=== PATIENT | male | born 1945 | race Caucasian/White ===

== ENCOUNTER 2020-10-26 15:38 | Inpatient (IN) ==
[2020-10-27] MEDS ORDERED: *HR* Dextrose 50 % in Water (Vial) 50 ML VIAL IVP PRN (16:48)
[2020-10-27] MEDS ORDERED: Dextrose Gel 15 GM/37.5 ML TUBE PO PRN ×2 (16:48)
[2020-10-27] MEDS ORDERED: D5% in Water 1,000 ML IVC PRN (16:48)
[2020-10-27] MEDS: Insulin LISPRO 300 UNITS/3 ML VIAL SUBQ SCH (19:48)
[2020-10-27] MEDS: levETIRAcetam 250 MG TABLET PO SCH (20:05)
[2020-10-27] MEDS: QUEtiapine Fumarate 25 MG TABLET PO PRN (20:05)
[2020-10-27] MEDS ORDERED: QUEtiapine Fumarate 25 MG TABLET PO SCH (21:00)
[2020-10-27] MEDS ORDERED: Insulin DETEMIR 100 UNIT/ML per UNIT SUBQ ONE (21:00)
[2020-10-28 00:52] LABS: Bilirubin,Urine Negative (Negative); Blood,Urine Trace-intact (Negative); Clarity,Urine Slightly Cloudy (Clear); Glucose,Urine (UA) Normal (Normal); Ketones,Urine Trace mg/dL (Negative); Leukocyte Esterase,Urine Negative (Negative); Nitrite,Urine Negative (Negative); Protein,Urine Negative (Neg-Trace); Specific Gravity,Urine 1.015 (1.010-1.025); Urobilinogen,Urine Normal (Normal)
[2020-10-28 00:55] LABS: Amorphous Sediment,Urine Few per hpf (None-Few); Color,Urine Yellow (Yellow); RBC,Urine 0-3 per hpf (0-3)
[2020-10-28 04:24] LABS: Hematocrit 42.6 % (37.5-50.1); Mean Corpuscular HGB Conc 35.2 g/dL (31.6-35.5); Mean Corpuscular Hemoglobin 30.9 pg (28.0-33.3); Mean Corpuscular Volume 87.7 fL (83.0-100.0); Mean Platelet Volume 9.9 fL (9.4-12.4); Platelet Count 215 K/mcL (140-400); Red Blood Count 4.86 M/mcL (4.19-5.50); Red Cell Distribution Width 12.4 % (11.5-14.5)
[2020-10-28 04:39] LABS: Alanine Aminotransferase 65 Units/L (7-52); Albumin/Globulin Ratio 1.6 (1.1-2.2); Alkaline Phosphatase 120 Units/L (34-104); Aspartate Amino Transferase 33 Units/L (13-39); BUN/Creatinine Ratio 19 (6-26); Bilirubin,Total 1.3 mg/dL (0.3-1.0); Blood Urea Nitrogen 18 mg/dL (8-23); Calcium 9.7 mg/dL (8.6-10.3); Carbon Dioxide 26 mEq/L (23-29); Chloride 95 mEq/L (98-107); Globulin 2.5 g/dL (2.4-3.5); Glucose 209 mg/dL (70-105); Magnesium 1.7 mg/dL (1.6-2.6); Osmolality,Calculated 280 (280-300); Sodium 131 mEq/L (136-145); Total Protein 6.5 g/dL (6.4-8.9); eGFR For African Americans > 60 (> 60); eGFR For Non-African Americans > 60 (> 60)
[2020-10-28] MEDS: Levothyroxine 25 MCG TABLET PO SCH (05:03)
[2020-10-28 05:23] LABS: Thyroid Stimulating Hormone 1.937 mcIU/mL (0.340-5.600)
[2020-10-28] MEDS ORDERED: *HR* LORazepam 2 MG/ML VIAL IVP ONE (07:57)
[2020-10-28 08:32] LABS: Estimated Average Glucose 180 mg/dl; Hemoglobin A1C 7.9 %
[2020-10-28] MEDS: Insulin LISPRO 300 UNITS/3 ML VIAL SUBQ SCH ×4 (09:28→20:25)
[2020-10-28] MEDS ORDERED: Bisacodyl 10 MG RECTAL SUPPOSITORY RC ONE (10:03)
[2020-10-28] MEDS: Ondansetron 4 MG/2 ML VIAL IVP PRN (10:28)
[2020-10-28] MEDS: atenoloL 50 MG TABLET PO SCH (11:26)
[2020-10-28] MEDS: Multivit/Ca/Min/Fe/FA 1 TAB TABLET PO SCH (11:26)
[2020-10-28] MEDS: levETIRAcetam 250 MG TABLET PO SCH ×3 (11:26→20:16)
[2020-10-28] MEDS: allopurinoL 100 MG TABLET PO SCH (11:26)
[2020-10-28] MEDS ORDERED: MOM Conc 10 ML UD.LIQ PO PRN (16:30)
[2020-10-28] MEDS: Sennosides/Docusate Sodium TABLET PO SCH (20:15)
[2020-10-28] MEDS: haloperidoL 1 MG TABLET PO PRN (20:16)
[2020-10-28] MEDS: QUEtiapine Fumarate 25 MG TABLET PO PRN (20:16)
[2020-10-28] MEDS: Insulin DETEMIR 100 UNIT/ML X5UNITS SUBQ SCH (20:25)
[2020-10-29 04:50] LABS: Hematocrit 40.2 % (37.5-50.1); Hemoglobin 14.2 g/dL (12.9-16.9); Mean Corpuscular HGB Conc 35.3 g/dL (31.6-35.5); Mean Corpuscular Volume 87.8 fL (83.0-100.0); Mean Platelet Volume 9.9 fL (9.4-12.4); Platelet Count 178 K/mcL (140-400); Red Blood Count 4.58 M/mcL (4.19-5.50); Red Cell Distribution Width 12.6 % (11.5-14.5); White Blood Count 7.9 K/mcL (4.3-11.1)
[2020-10-29 05:06] LABS: Alanine Aminotransferase 50 Units/L (7-52); Albumin 3.7 g/dL (3.5-5.7); Albumin/Globulin Ratio 1.8 (1.1-2.2); Alkaline Phosphatase 104 Units/L (34-104); Aspartate Amino Transferase 24 Units/L (13-39); BUN/Creatinine Ratio 26 (6-26); Bilirubin,Total 1.2 mg/dL (0.3-1.0); Blood Urea Nitrogen 23 mg/dL (8-23); Calcium 9.4 mg/dL (8.6-10.3); Carbon Dioxide 25 mEq/L (23-29); Chloride 97 mEq/L (98-107); Globulin 2.1 g/dL (2.4-3.5); Glucose 188 mg/dL (70-105); Magnesium 1.7 mg/dL (1.6-2.6); Osmolality,Calculated 283 (280-300); Potassium 3.7 mEq/L (3.5-5.1); Sodium 132 mEq/L (136-145); Total Protein 5.8 g/dL (6.4-8.9); eGFR For African Americans > 60 (> 60); eGFR For Non-African Americans > 60 (> 60)
[2020-10-29] MEDS: Levothyroxine 25 MCG TABLET PO SCH (05:11)
[2020-10-29] MEDS: atenoloL 50 MG TABLET PO SCH (08:26)
[2020-10-29] MEDS: allopurinoL 100 MG TABLET PO SCH (08:26)
[2020-10-29] MEDS: Multivit/Ca/Min/Fe/FA 1 TAB TABLET PO SCH (08:26)
[2020-10-29] MEDS: levETIRAcetam 250 MG TABLET PO SCH ×2 (08:26→21:39)
[2020-10-29] MEDS: Insulin LISPRO 300 UNITS/3 ML VIAL SUBQ SCH ×4 (08:28→21:39)
[2020-10-29] MEDS: Sennosides/Docusate Sodium TABLET PO SCH ×2 (08:29→21:37)
[2020-10-29] MEDS ORDERED: Bisacodyl 10 MG RECTAL SUPPOSITORY RC ONE (10:03)
[2020-10-29] MEDS: haloperidoL 1 MG TABLET PO PRN (21:39)
[2020-10-29] MEDS: QUEtiapine Fumarate 25 MG TABLET PO PRN (21:40)
[2020-10-29] MEDS: Acetaminophen 325 MG TABLET PO PRN (21:40)
[2020-10-29] MEDS: Insulin DETEMIR 100 UNIT/ML X5UNITS SUBQ SCH (21:41)
[2020-10-30] MEDS: Levothyroxine 25 MCG TABLET PO SCH (04:37)
[2020-10-30] MEDS: Acetaminophen 325 MG TABLET PO PRN ×3 (04:37→21:55)
[2020-10-30] MEDS: Sennosides/Docusate Sodium TABLET PO SCH ×2 (09:11→19:56)
[2020-10-30] MEDS: levETIRAcetam 250 MG TABLET PO SCH ×2 (09:11→19:57)
[2020-10-30] MEDS: Multivit/Ca/Min/Fe/FA 1 TAB TABLET PO SCH (09:12)
[2020-10-30] MEDS: allopurinoL 100 MG TABLET PO SCH (09:12)
[2020-10-30] MEDS: atenoloL 50 MG TABLET PO SCH (09:12)
[2020-10-30] MEDS: Insulin LISPRO 300 UNITS/3 ML VIAL SUBQ SCH ×4 (09:13→19:58)
[2020-10-30] MEDS: haloperidoL 1 MG TABLET PO PRN (19:56)
[2020-10-30] MEDS: QUEtiapine Fumarate 25 MG TABLET PO PRN (19:57)
[2020-10-30] MEDS: Insulin DETEMIR 100 UNIT/ML X5UNITS SUBQ SCH (19:58)
[2020-10-30] MEDS: Haloperidol Lactate 5 MG/ML VIAL IVP PRN (21:56)
[2020-10-31] MEDS ORDERED: *HR* HYDROcodone/Acet 5/325 mg TABLET PO ONE (01:30)
[2020-10-31 04:35] LABS: Hematocrit 40.3 % (37.5-50.1); Hemoglobin 14.3 g/dL (12.9-16.9); Mean Corpuscular HGB Conc 35.5 g/dL (31.6-35.5); Mean Corpuscular Volume 87.4 fL (83.0-100.0); Platelet Count 182 K/mcL (140-400); Red Blood Count 4.61 M/mcL (4.19-5.50); Red Cell Distribution Width 12.4 % (11.5-14.5); White Blood Count 7.4 K/mcL (4.3-11.1)
[2020-10-31 04:50] LABS: BUN/Creatinine Ratio 25 (6-26); Blood Urea Nitrogen 22 mg/dL (8-23); Calcium 9.2 mg/dL (8.6-10.3); Carbon Dioxide 24 mEq/L (23-29); Chloride 97 mEq/L (98-107); Glucose 184 mg/dL (70-105); Magnesium 1.7 mg/dL (1.6-2.6); Osmolality,Calculated 282 (280-300); Potassium 3.5 mEq/L (3.5-5.1); Sodium 132 mEq/L (136-145); eGFR For African Americans > 60 (> 60); eGFR For Non-African Americans > 60 (> 60)
[2020-10-31] MEDS: Levothyroxine 25 MCG TABLET PO SCH (05:28)
[2020-10-31] MEDS: Ondansetron 4 MG/2 ML VIAL IVP PRN (08:40)
[2020-10-31] MEDS: Haloperidol Lactate 5 MG/ML VIAL IVP PRN (08:54)
[2020-10-31] MEDS: Multivit/Ca/Min/Fe/FA 1 TAB TABLET PO SCH (10:26)
[2020-10-31] MEDS: allopurinoL 100 MG TABLET PO SCH (10:26)
[2020-10-31] MEDS: Sennosides/Docusate Sodium TABLET PO SCH ×2 (10:26→21:21)
[2020-10-31] MEDS: Insulin LISPRO 300 UNITS/3 ML VIAL SUBQ SCH ×4 (10:49→19:43)
[2020-10-31] MEDS: levETIRAcetam 250 MG TABLET PO SCH ×2 (10:51→21:20)
[2020-10-31] MEDS: atenoloL 50 MG TABLET PO SCH (10:51)
[2020-10-31] MEDS: Metoclopramide 10 MG/2 ML VIAL IVP SCH ×2 (12:31→17:28)
[2020-10-31] MEDS: Acetaminophen 325 MG TABLET PO PRN (14:26)
[2020-10-31] MEDS: QUEtiapine Fumarate 25 MG TABLET PO SCH (21:19)
[2020-10-31] MEDS: Insulin DETEMIR 100 UNIT/ML X5UNITS SUBQ SCH (21:20)
[2020-10-31] MEDS: Divalproex (12 HR) 250 MG TABLET PO SCH (21:20)
[2020-11-01] MEDS: Metoclopramide 10 MG/2 ML VIAL IVP SCH ×4 (02:38→17:06)
[2020-11-01] MEDS: Levothyroxine 25 MCG TABLET PO SCH (06:07)
[2020-11-01] MEDS: levETIRAcetam 250 MG TABLET PO SCH ×2 (08:03→21:17)
[2020-11-01] MEDS: Divalproex (12 HR) 250 MG TABLET PO SCH (08:04)
[2020-11-01] MEDS: allopurinoL 100 MG TABLET PO SCH (08:04)
[2020-11-01] MEDS: Sennosides/Docusate Sodium TABLET PO SCH ×2 (08:04→21:17)
[2020-11-01] MEDS: Multivit/Ca/Min/Fe/FA 1 TAB TABLET PO SCH (08:04)
[2020-11-01] MEDS: atenoloL 50 MG TABLET PO SCH (08:04)
[2020-11-01] MEDS: Insulin LISPRO 300 UNITS/3 ML VIAL SUBQ SCH ×4 (08:15→21:17)
[2020-11-01] MEDS: QUEtiapine Fumarate 25 MG TABLET PO SCH (21:16)
[2020-11-01] MEDS: Divalproex Sodium 125 MG Sprinkle Capsule (DR) PO SCH (21:17)
[2020-11-01] MEDS: Insulin DETEMIR 100 UNIT/ML X5UNITS SUBQ SCH (21:18)
[2020-11-02] MEDS: Metoclopramide 10 MG/2 ML VIAL IVP SCH ×4 (00:26→17:04)
[2020-11-02] MEDS: Levothyroxine 25 MCG TABLET PO SCH (05:23)
[2020-11-02] MEDS: Sennosides/Docusate Sodium TABLET PO SCH ×2 (08:57→21:08)
[2020-11-02] MEDS: Multivit/Ca/Min/Fe/FA 1 TAB TABLET PO SCH (08:57)
[2020-11-02] MEDS: levETIRAcetam 250 MG TABLET PO SCH ×2 (08:58→21:09)
[2020-11-02] MEDS: atenoloL 50 MG TABLET PO SCH (08:58)
[2020-11-02] MEDS: Divalproex Sodium 125 MG Sprinkle Capsule (DR) PO SCH (08:58)
[2020-11-02] MEDS: allopurinoL 100 MG TABLET PO SCH (08:58)
[2020-11-02] MEDS: Insulin LISPRO 300 UNITS/3 ML VIAL SUBQ SCH ×4 (08:59→21:08)
[2020-11-02] MEDS ORDERED: Aquaphor/Maalox 50 GM BOTTLE TP PRN (15:44)
[2020-11-02] MEDS: Acetaminophen 325 MG TABLET PO PRN (19:06)
[2020-11-02] MEDS: QUEtiapine Fumarate 25 MG TABLET PO SCH (21:08)
[2020-11-02] MEDS: haloperidoL 1 MG TABLET PO PRN (21:08)
[2020-11-02] MEDS: Ondansetron 4 MG/2 ML VIAL IVP PRN (21:09)
[2020-11-02] MEDS: Insulin DETEMIR 100 UNIT/ML X5UNITS SUBQ SCH (22:39)
[2020-11-03] MEDS: Metoclopramide 10 MG/2 ML VIAL IVP SCH ×3 (00:39→13:42)
[2020-11-03] MEDS: Levothyroxine 25 MCG TABLET PO SCH (04:58)
[2020-11-03] MEDS: Acetaminophen 325 MG TABLET PO PRN ×3 (04:58→21:36)
[2020-11-03 05:21] LABS: Basophils # 0.1 K/mcL (0.0-0.2); Basophils % 0.8 %; Eosinophils # 0.2 K/mcL (0.0-0.6); Eosinophils % 2.4 %; Hematocrit 40.5 % (37.5-50.1); Immature Granulocytes % 0.8 % (0-4); Lymphocytes # 2.2 K/mcL (0.6-4.6); Lymphocytes % 33.5 %; Mean Corpuscular HGB Conc 34.6 g/dL (31.6-35.5); Mean Corpuscular Hemoglobin 30.2 pg (28.0-33.3); Mean Corpuscular Volume 87.5 fL (83.0-100.0); Monocytes # 0.5 K/mcL (0.0-1.3); Monocytes % 8.2 %; Neutrophils # 3.6 K/mcL (1.6-8.9); Platelet Count 173 K/mcL (140-400); Red Blood Count 4.63 M/mcL (4.19-5.50); Red Cell Distribution Width 12.4 % (11.5-14.5); Segmented Neutrophils % 54.3 %; White Blood Count 6.6 K/mcL (4.3-11.1)
[2020-11-03 05:44] LABS: BUN/Creatinine Ratio 31 (6-26); Blood Urea Nitrogen 27 mg/dL (8-23); Calcium 9.3 mg/dL (8.6-10.3); Carbon Dioxide 24 mEq/L (23-29); Chloride 99 mEq/L (98-107); Glucose 162 mg/dL (70-105); Osmolality,Calculated 287 (280-300); Potassium 3.6 mEq/L (3.5-5.1); Sodium 134 mEq/L (136-145); eGFR For African Americans > 60 (> 60); eGFR For Non-African Americans > 60 (> 60)
[2020-11-03] MEDS: allopurinoL 100 MG TABLET PO SCH (09:03)
[2020-11-03] MEDS: Multivit/Ca/Min/Fe/FA 1 TAB TABLET PO SCH (09:03)
[2020-11-03] MEDS: levETIRAcetam 250 MG TABLET PO SCH ×2 (09:04→21:29)
[2020-11-03] MEDS: Insulin LISPRO 300 UNITS/3 ML VIAL SUBQ SCH ×4 (09:04→21:30)
[2020-11-03] MEDS: atenoloL 50 MG TABLET PO SCH (09:04)
[2020-11-03] MEDS: QUEtiapine Fumarate 25 MG TABLET PO SCH (21:30)
[2020-11-03] MEDS: haloperidoL 1 MG TABLET PO PRN (21:31)
[2020-11-03] MEDS: Insulin DETEMIR 100 UNIT/ML X5UNITS SUBQ SCH (21:35)
[2020-11-04] MEDS: Levothyroxine 25 MCG TABLET PO SCH (05:49)
[2020-11-04] MEDS: levETIRAcetam 250 MG TABLET PO SCH ×2 (09:12→20:19)
[2020-11-04] MEDS: atenoloL 50 MG TABLET PO SCH (09:12)
[2020-11-04] MEDS: allopurinoL 100 MG TABLET PO SCH (09:12)
[2020-11-04] MEDS: Multivit/Ca/Min/Fe/FA 1 TAB TABLET PO SCH (09:12)
[2020-11-04] MEDS: Insulin LISPRO 300 UNITS/3 ML VIAL SUBQ SCH ×4 (13:09→20:22)
[2020-11-04] MEDS: QUEtiapine Fumarate 25 MG TABLET PO SCH (20:20)
[2020-11-04] MEDS: Insulin DETEMIR 100 UNIT/ML X5UNITS SUBQ SCH (20:26)
[2020-11-04] MEDS: Haloperidol Lactate 5 MG/ML VIAL IVP PRN (22:20)
[2020-11-05] MEDS: Acetaminophen 325 MG TABLET PO PRN ×2 (04:38→20:34)
[2020-11-05] MEDS: Levothyroxine 25 MCG TABLET PO SCH (05:36)
[2020-11-05] MEDS: atenoloL 50 MG TABLET PO SCH (07:42)
[2020-11-05] MEDS: allopurinoL 100 MG TABLET PO SCH (07:42)
[2020-11-05] MEDS: levETIRAcetam 250 MG TABLET PO SCH ×2 (07:42→20:33)
[2020-11-05] MEDS: Multivit/Ca/Min/Fe/FA 1 TAB TABLET PO SCH (07:42)
[2020-11-05] MEDS: Insulin LISPRO 300 UNITS/3 ML VIAL SUBQ SCH ×4 (07:43→21:41)
[2020-11-05] MEDS ORDERED: Heparin 25,000UNIT/250ML 1/2NS 25,000 UNIT/250 ML IV.SOLN IVC SCH (16:30)
[2020-11-05 18:00] LABS: Basophils % 0.6 %; Eosinophils # 0.1 K/mcL (0.0-0.6); Hematocrit 39.6 % (37.5-50.1); Hemoglobin 13.7 g/dL (12.9-16.9); Immature Granulocytes % 0.8 % (0-4); Lymphocytes # 1.6 K/mcL (0.6-4.6); Lymphocytes % 31.4 %; Mean Corpuscular HGB Conc 34.6 g/dL (31.6-35.5); Mean Corpuscular Hemoglobin 30.6 pg (28.0-33.3); Mean Corpuscular Volume 88.6 fL (83.0-100.0); Mean Platelet Volume 9.6 fL (9.4-12.4); Monocytes # 0.4 K/mcL (0.0-1.3); Monocytes % 7.6 %; Neutrophils # 2.9 K/mcL (1.6-8.9); Platelet Count 152 K/mcL (140-400); Red Blood Count 4.47 M/mcL (4.19-5.50); Red Cell Distribution Width 12.4 % (11.5-14.5); Segmented Neutrophils % 57.6 %
[2020-11-05 18:08] LABS: INR 1.3; Prothrombin Time 14.4 Seconds (9.4-12.1)
[2020-11-05 18:13] LABS: Heparin anti-factor XA UFH 0.04 IU/mL (0.30-0.70)
[2020-11-05] MEDS: Heparin 25,000UNIT/250ML 1/2NS 25,000 UNIT/250 ML IV.SOLN IVC SCH (19:55)
[2020-11-05] MEDS: QUEtiapine Fumarate 25 MG TABLET PO SCH (20:33)
[2020-11-05] MEDS: Insulin DETEMIR 100 UNIT/ML X5UNITS SUBQ SCH (21:43)
[2020-11-05] MEDS: haloperidoL 1 MG TABLET PO PRN (21:44)
[2020-11-06 02:04] LABS: Basophils % 0.5 %; Eosinophils # 0.1 K/mcL (0.0-0.6); Eosinophils % 2.8 %; Hematocrit 37.9 % (37.5-50.1); Hemoglobin 13.3 g/dL (12.9-16.9); Immature Granulocytes % 0.7 % (0-4); Lymphocytes # 1.9 K/mcL (0.6-4.6); Lymphocytes % 45.4 %; Mean Corpuscular HGB Conc 35.1 g/dL (31.6-35.5); Mean Corpuscular Hemoglobin 31.1 pg (28.0-33.3); Mean Corpuscular Volume 88.6 fL (83.0-100.0); Mean Platelet Volume 9.7 fL (9.4-12.4); Monocytes # 0.3 K/mcL (0.0-1.3); Monocytes % 7.6 %; Neutrophils # 1.8 K/mcL (1.6-8.9); Platelet Count 129 K/mcL (140-400); Red Blood Count 4.28 M/mcL (4.19-5.50); Red Cell Distribution Width 12.5 % (11.5-14.5); White Blood Count 4.2 K/mcL (4.3-11.1)
[2020-11-06] MEDS: haloperidoL 1 MG TABLET PO PRN ×2 (05:54→20:47)
[2020-11-06] MEDS: Levothyroxine 25 MCG TABLET PO SCH (05:54)
[2020-11-06] MEDS: atenoloL 50 MG TABLET PO SCH (09:37)
[2020-11-06] MEDS: Insulin LISPRO 300 UNITS/3 ML VIAL SUBQ SCH ×4 (09:37→20:46)
[2020-11-06] MEDS: allopurinoL 100 MG TABLET PO SCH (09:38)
[2020-11-06] MEDS: levETIRAcetam 250 MG TABLET PO SCH ×2 (09:38→20:46)
[2020-11-06] MEDS: Multivit/Ca/Min/Fe/FA 1 TAB TABLET PO SCH (09:38)
[2020-11-06 12:26] LABS: % Iron Saturation 18 % (20-55); Iron 52 mcg/dL (65-175); Transferrin 211 mg/dL (203-362)
[2020-11-06] MEDS: QUEtiapine Fumarate 25 MG TABLET PO SCH (20:47)
[2020-11-06] MEDS: Insulin DETEMIR 100 UNIT/ML X5UNITS SUBQ SCH (20:48)
[2020-11-06] MEDS: Acetaminophen 325 MG TABLET PO PRN (20:48)
[2020-11-07] MEDS: Levothyroxine 25 MCG TABLET PO SCH (05:39)
[2020-11-07] MEDS: allopurinoL 100 MG TABLET PO SCH (08:52)
[2020-11-07] MEDS: Multivit/Ca/Min/Fe/FA 1 TAB TABLET PO SCH (08:52)
[2020-11-07] MEDS: atenoloL 50 MG TABLET PO SCH (08:52)
[2020-11-07] MEDS: levETIRAcetam 250 MG TABLET PO SCH ×2 (08:52→20:36)
[2020-11-07] MEDS: Insulin LISPRO 300 UNITS/3 ML VIAL SUBQ SCH ×4 (08:53→20:40)
[2020-11-07] MEDS: Acetaminophen 325 MG TABLET PO PRN ×2 (11:38→20:36)
[2020-11-07] MEDS: Heparin 25,000UNIT/250ML 1/2NS 25,000 UNIT/250 ML IV.SOLN IVC SCH (11:40)
[2020-11-07] MEDS: haloperidoL 1 MG TABLET PO PRN ×2 (15:00→23:24)
[2020-11-07] MEDS: QUEtiapine Fumarate 25 MG TABLET PO SCH (20:36)
[2020-11-07] MEDS: Insulin DETEMIR 100 UNIT/ML X5UNITS SUBQ SCH (20:40)
[2020-11-08] MEDS: Levothyroxine 25 MCG TABLET PO SCH (05:55)
[2020-11-08] MEDS: Heparin 25,000UNIT/250ML 1/2NS 25,000 UNIT/250 ML IV.SOLN IVC SCH ×2 (07:34→17:50)
[2020-11-08] MEDS: levETIRAcetam 250 MG TABLET PO SCH ×2 (08:32→21:33)
[2020-11-08] MEDS: Multivit/Ca/Min/Fe/FA 1 TAB TABLET PO SCH (08:32)
[2020-11-08] MEDS: allopurinoL 100 MG TABLET PO SCH (08:32)
[2020-11-08] MEDS: Insulin LISPRO 300 UNITS/3 ML VIAL SUBQ SCH ×4 (08:33→21:34)
[2020-11-08] MEDS: atenoloL 50 MG TABLET PO SCH (08:33)
[2020-11-08 10:37] LABS: Basophils % 0.6 %; Eosinophils # 0.1 K/mcL (0.0-0.6); Eosinophils % 3.2 %; Hematocrit 35.1 % (37.5-50.1); Immature Granulocytes % 0.3 % (0-4); Lymphocytes # 1.2 K/mcL (0.6-4.6); Lymphocytes % 34.4 %; Mean Corpuscular HGB Conc 34.2 g/dL (31.6-35.5); Mean Corpuscular Hemoglobin 30.7 pg (28.0-33.3); Mean Corpuscular Volume 89.8 fL (83.0-100.0); Mean Platelet Volume 9.8 fL (9.4-12.4); Monocytes # 0.3 K/mcL (0.0-1.3); Monocytes % 8.2 %; Neutrophils # 1.8 K/mcL (1.6-8.9); Platelet Count 114 K/mcL (140-400); Red Blood Count 3.91 M/mcL (4.19-5.50); Red Cell Distribution Width 12.8 % (11.5-14.5); Segmented Neutrophils % 53.3 %; White Blood Count 3.4 K/mcL (4.3-11.1)
[2020-11-08 10:53] LABS: BUN/Creatinine Ratio 20 (6-26); Blood Urea Nitrogen 15 mg/dL (8-23); Calcium 8.6 mg/dL (8.6-10.3); Carbon Dioxide 25 mEq/L (23-29); Chloride 100 mEq/L (98-107); Glucose 295 mg/dL (70-105); Osmolality,Calculated 290 (280-300); Potassium 3.3 mEq/L (3.5-5.1); Sodium 134 mEq/L (136-145); eGFR For African Americans > 60 (> 60); eGFR For Non-African Americans > 60 (> 60)
[2020-11-08] MEDS ORDERED: Potassium Chloride Elixir 20 MEQ/15 ML UDC PO ONE (13:35)
[2020-11-08] MEDS ORDERED: Simethicone 80 MG TAB.CHEW PO PRN (14:45)
[2020-11-08] MEDS: Acetaminophen 325 MG TABLET PO PRN (19:25)
[2020-11-08] MEDS: Insulin DETEMIR 100 UNIT/ML X5UNITS SUBQ SCH (21:34)
[2020-11-08] MEDS: QUEtiapine Fumarate 25 MG TABLET PO SCH (21:34)
[2020-11-08] MEDS: haloperidoL 1 MG TABLET PO PRN (23:04)
[2020-11-09] MEDS: Heparin 25,000UNIT/250ML 1/2NS 25,000 UNIT/250 ML IV.SOLN IVC SCH (01:38)
[2020-11-09] MEDS: Acetaminophen 325 MG TABLET PO PRN ×2 (01:51→20:30)
[2020-11-09] MEDS: Haloperidol Lactate 5 MG/ML VIAL IVP PRN (03:50)
[2020-11-09] MEDS: Insulin LISPRO 300 UNITS/3 ML VIAL SUBQ SCH ×4 (09:00→20:18)
[2020-11-09] MEDS: Levothyroxine 25 MCG TABLET PO SCH (09:03)
[2020-11-09] MEDS: atenoloL 50 MG TABLET PO SCH (09:03)
[2020-11-09] MEDS: Multivit/Ca/Min/Fe/FA 1 TAB TABLET PO SCH (09:03)
[2020-11-09] MEDS: levETIRAcetam 250 MG TABLET PO SCH ×2 (09:03→20:31)
[2020-11-09] MEDS: allopurinoL 100 MG TABLET PO SCH (09:03)
[2020-11-09] MEDS: haloperidoL 1 MG TABLET PO PRN ×2 (10:41→20:33)
[2020-11-09] MEDS: QUEtiapine Fumarate 25 MG TABLET PO SCH (20:29)
[2020-11-09] MEDS: Insulin DETEMIR 100 UNIT/ML X5UNITS SUBQ SCH (20:35)
[2020-11-10] MEDS: Levothyroxine 25 MCG TABLET PO SCH (04:51)
[2020-11-10] MEDS: haloperidoL 1 MG TABLET PO PRN ×2 (04:51→20:05)
[2020-11-10] MEDS: Insulin LISPRO 300 UNITS/3 ML VIAL SUBQ SCH ×4 (08:09→20:13)
[2020-11-10] MEDS: Multivit/Ca/Min/Fe/FA 1 TAB TABLET PO SCH (08:10)
[2020-11-10] MEDS: atenoloL 50 MG TABLET PO SCH (08:10)
[2020-11-10] MEDS: levETIRAcetam 250 MG TABLET PO SCH ×2 (08:10→20:08)
[2020-11-10] MEDS: allopurinoL 100 MG TABLET PO SCH (08:10)
[2020-11-10] MEDS: Ondansetron 4 MG/2 ML VIAL IVP PRN (09:01)
[2020-11-10] MEDS: Acetaminophen 325 MG TABLET PO PRN ×2 (14:07→20:07)
[2020-11-10] MEDS: QUEtiapine Fumarate 25 MG TABLET PO SCH (20:06)
[2020-11-10] MEDS: Insulin DETEMIR 100 UNIT/ML X5UNITS SUBQ SCH (20:12)
[2020-11-11] MEDS: Levothyroxine 25 MCG TABLET PO SCH (05:08)
[2020-11-11] MEDS: haloperidoL 1 MG TABLET PO PRN ×2 (09:03→18:39)
[2020-11-11] MEDS: atenoloL 50 MG TABLET PO SCH (09:03)
[2020-11-11] MEDS: levETIRAcetam 250 MG TABLET PO SCH ×2 (09:03→20:30)
[2020-11-11] MEDS: Multivit/Ca/Min/Fe/FA 1 TAB TABLET PO SCH (09:03)
[2020-11-11] MEDS: allopurinoL 100 MG TABLET PO SCH (09:04)
[2020-11-11] MEDS: Insulin LISPRO 300 UNITS/3 ML VIAL SUBQ SCH ×4 (09:05→20:40)
[2020-11-11 17:18] LABS: INR 1.2; Prothrombin Time 13.8 Seconds (9.4-12.1)
[2020-11-11 17:20] LABS: Activated Partial Thrombo Time 35.7 Seconds (26.0-36.0)
[2020-11-11 17:20] LABS: Hemoglobin 13.2 g/dL (12.9-16.9); Mean Corpuscular HGB Conc 34.7 g/dL (31.6-35.5); Mean Corpuscular Hemoglobin 31.2 pg (28.0-33.3); Mean Corpuscular Volume 89.8 fL (83.0-100.0); Mean Platelet Volume 9.5 fL (9.4-12.4); Platelet Count 144 K/mcL (140-400); Red Blood Count 4.23 M/mcL (4.19-5.50); Red Cell Distribution Width 13.2 % (11.5-14.5)
[2020-11-11 17:34] LABS: Heparin anti-factor XA UFH < 0.04 IU/mL (0.30-0.70)
[2020-11-11] MEDS: Heparin 25,000UNIT/250ML 1/2NS 25,000 UNIT/250 ML IV.SOLN IVC SCH (17:57)
[2020-11-11] MEDS ORDERED: haloperidoL 1 MG TABLET PO STA (19:56)
[2020-11-11] MEDS: Acetaminophen 325 MG TABLET PO PRN (20:30)
[2020-11-11] MEDS: QUEtiapine Fumarate 25 MG TABLET PO SCH (20:30)
[2020-11-11] MEDS: Insulin DETEMIR 100 UNIT/ML X5UNITS SUBQ SCH (20:40)
[2020-11-12] MEDS: haloperidoL 1 MG TABLET PO PRN ×2 (05:55→20:33)
[2020-11-12] MEDS: Levothyroxine 25 MCG TABLET PO SCH (05:55)
[2020-11-12 07:55] LABS: Hematocrit 38.3 % (37.5-50.1); Hemoglobin 13.2 g/dL (12.9-16.9); Mean Corpuscular HGB Conc 34.5 g/dL (31.6-35.5); Mean Corpuscular Hemoglobin 30.8 pg (28.0-33.3); Mean Corpuscular Volume 89.5 fL (83.0-100.0); Mean Platelet Volume 9.8 fL (9.4-12.4); Platelet Count 128 K/mcL (140-400); Red Blood Count 4.28 M/mcL (4.19-5.50); Red Cell Distribution Width 13.1 % (11.5-14.5); White Blood Count 4.4 K/mcL (4.3-11.1)
[2020-11-12 08:16] LABS: Alanine Aminotransferase 49 Units/L (7-52); Albumin 3.4 g/dL (3.5-5.7); Albumin/Globulin Ratio 1.4 (1.1-2.2); Alkaline Phosphatase 88 Units/L (34-104); Aspartate Amino Transferase 35 Units/L (13-39); BUN/Creatinine Ratio 23 (6-26); Bilirubin,Total 0.9 mg/dL (0.3-1.0); Blood Urea Nitrogen 17 mg/dL (8-23); Carbon Dioxide 27 mEq/L (23-29); Chloride 99 mEq/L (98-107); Globulin 2.4 g/dL (2.4-3.5); Glucose 202 mg/dL (70-105); Magnesium 1.7 mg/dL (1.6-2.6); Osmolality,Calculated 285 (280-300); Potassium 3.5 mEq/L (3.5-5.1); Sodium 134 mEq/L (136-145); Total Protein 5.8 g/dL (6.4-8.9); eGFR For African Americans > 60 (> 60); eGFR For Non-African Americans > 60 (> 60)
[2020-11-12] MEDS ORDERED: Haloperidol Lactate 5 MG/ML VIAL IVP PRN (08:41)
[2020-11-12] MEDS: levETIRAcetam 250 MG TABLET PO SCH ×2 (09:31→20:32)
[2020-11-12] MEDS: allopurinoL 100 MG TABLET PO SCH (09:32)
[2020-11-12] MEDS: Acetaminophen 325 MG TABLET PO PRN ×2 (09:32→20:32)
[2020-11-12] MEDS: atenoloL 50 MG TABLET PO SCH (09:32)
[2020-11-12] MEDS: Multivit/Ca/Min/Fe/FA 1 TAB TABLET PO SCH (09:32)
[2020-11-12] MEDS: Insulin LISPRO 300 UNITS/3 ML VIAL SUBQ SCH ×4 (09:34→20:32)
[2020-11-12] MEDS: Heparin 25,000UNIT/250ML 1/2NS 25,000 UNIT/250 ML IV.SOLN IVC SCH (17:43)
[2020-11-12] MEDS: QUEtiapine Fumarate 25 MG TABLET PO SCH (20:33)
[2020-11-12] MEDS: Insulin DETEMIR 100 UNIT/ML X5UNITS SUBQ SCH (20:33)
[2020-11-13] MEDS: Levothyroxine 25 MCG TABLET PO SCH (05:17)
[2020-11-13] MEDS: atenoloL 50 MG TABLET PO SCH (09:10)
[2020-11-13] MEDS: Multivit/Ca/Min/Fe/FA 1 TAB TABLET PO SCH (09:10)
[2020-11-13] MEDS: allopurinoL 100 MG TABLET PO SCH (09:10)
[2020-11-13] MEDS: Acetaminophen 325 MG TABLET PO PRN (09:10)
[2020-11-13] MEDS: levETIRAcetam 250 MG TABLET PO SCH ×2 (09:10→23:07)
[2020-11-13] MEDS: Insulin LISPRO 300 UNITS/3 ML VIAL SUBQ SCH ×4 (09:46→23:07)
[2020-11-13] MEDS: Heparin 25,000UNIT/250ML 1/2NS 25,000 UNIT/250 ML IV.SOLN IVC SCH (11:00)
[2020-11-13] MEDS: haloperidoL 1 MG TABLET PO PRN (17:03)
[2020-11-13] MEDS ORDERED: 0.9 % Sodium Chloride 1,000 ML IVC SCH (22:00)
[2020-11-13] MEDS: Insulin DETEMIR 100 UNIT/ML X5UNITS SUBQ SCH (23:07)
[2020-11-13] MEDS: QUEtiapine Fumarate 25 MG TABLET PO SCH (23:08)
[2020-11-13 23:19] VITALS: BP 169/84
== END 2020-11-14 02:05 | disposition short-term general hospital (02) | DRG 57 ==
LOC: INPGRE 10-27 13:16
PROVIDERS: ADMIT Family Medicine; ATTEND Family Medicine